=== PATIENT | male | born 1940 | race Caucasian/White ===

== ENCOUNTER 2023-01-20 20:02 | Inpatient (IN) | payer MEDICARE, OTHER ==
[2023-01-20 20:52] LABS: #Monocytes 1.1 thou/uL (0.11-0.59); #Neutrophils 12.3 thou/uL (1.40-6.50); %Basophils 0.2 % (0.0-1.0); %Eosinophils 0.2 % (0.0-10.0); %Lymphocytes 4.2 % (21.0-51.0); %Neutrophils 86.9 % (42.0-75.0); Hemoglobin 13.3 g/dL (14.0-18.0); Mean Corpuscular HGB CONC 33.8 g/dL (32.0-36.0); Mean Corpuscular Hemoglobin 33.2 pg (27.0-31.0); Mean Platelet Volume 10.3 fL (7.4-10.4); Platelet Count 189 10x3/uL (130-400); RBC Distribution Width 13.2 % (11.5-14.5); Red Blood Cell (RBC) Count 4.01 mill/uL (4.70-6.10); White Blood Cell (WBC) Count 14.1 10x3/uL (4.8-10.8)
[2023-01-20 21:14] LABS: ALT (SGPT) 15 U/L (8-55); AST (SGOT) 27 U/L (5-34); Albumin 3.8 g/dL (3.4-4.8); Alkaline Phosphatase 69 U/L (40-110); Anion Gap 12 mmol/L (10-20); BUN (Urea Nitrogen) 29 mg/dL (8.4-25.7); Bilirubin, Total 0.7 mg/dL (0.2-1.2); CK (CPK) 491 U/L (30-200); Calc. Creatinine Clearance 0 mL/min (70-130); Calcium 8.6 mg/dL (7.8-10.44); Carbon Dioxide 23 mmol/L (23-31); Chloride 108 mmol/L (98-107); Estimated GFR 56; Globulin 2.2 g/dL (2.4-3.5); Glucose 151 mg/dL (83-110); Potassium 4.3 mmol/L (3.5-5.1); Sodium 139 mmol/L (136-145)
[2023-01-20] MEDS ORDERED: Aspirin Chewable 81 MG TAB ONE (21:32)
[2023-01-20] MEDS ORDERED: Ondansetron ODT 4 MG TAB PO PRN (22:04)
[2023-01-20 22:35] LABS: Magnesium 1.8 mg/dL (1.6-2.6)
[2023-01-21] MEDS ORDERED: Magnesium 2 GM/50 ML(in water) 2 GM in Premix Bag 1 BAG IVPB SCH (00:15)
[2023-01-21 01:06] VITALS: BMI 26.7
[2023-01-21] MEDS ORDERED: Electrolyte Replacement Protocol 1 EACH FS PRN (01:07)
[2023-01-21] MEDS ORDERED: Sodium Chloride 0.9% 1,000 ML IV SCH (01:15)
[2023-01-21] MEDS: dilTIAZem 125 MG, Admixture Fee 1 EACH in Sodium Chloride 0.9% 100 ML IVPB SCH ×2 (03:44→20:47)
[2023-01-21 04:26] LABS: #Eosinphils 0.1 thou/uL (0.0-0.7); #Monocytes 1.1 thou/uL (0.11-0.59); #Neutrophils 5.8 thou/uL (1.40-6.50); %Basophils 0.4 % (0.0-1.0); %Eosinophils 1.2 % (0.0-10.0); %Lymphocytes 14.4 % (21.0-51.0); %Monocytes 13.1 % (0.0-10.0); %Neutrophils 70.7 % (42.0-75.0); Hemoglobin 12.7 g/dL (14.0-18.0); Mean Corpuscular Hemoglobin 33.2 pg (27.0-31.0); Mean Corpuscular Volume 97.4 fl (78.0-98.0); Mean Platelet Volume 10.2 fL (7.4-10.4); Platelet Count 186 10x3/uL (130-400); RBC Distribution Width 13.3 % (11.5-14.5); Red Blood Cell (RBC) Count 3.83 mill/uL (4.70-6.10); White Blood Cell (WBC) Count 8.2 10x3/uL (4.8-10.8)
[2023-01-21 04:34] LABS: Hemoglobin A1c 5.3 % (4.0-6.0)
[2023-01-21 04:54] LABS: ALT (SGPT) 12 U/L (8-55); AST (SGOT) 24 U/L (5-34); Albumin 3.5 g/dL (3.4-4.8); Alkaline Phosphatase 59 U/L (40-110); Anion Gap 12 mmol/L (10-20); BUN (Urea Nitrogen) 23 mg/dL (8.4-25.7); Bilirubin, Total 0.8 mg/dL (0.2-1.2); CK (CPK) 395 U/L (30-200); Calc. Creatinine Clearance 87 mL/min (70-130); Calcium 8.4 mg/dL (7.8-10.44); Carbon Dioxide 21 mmol/L (23-31); Chloride 110 mmol/L (98-107); Estimated GFR 88; Globulin 2.1 g/dL (2.4-3.5); Glucose 108 mg/dL (83-110); Potassium 3.9 mmol/L (3.5-5.1); Protein, Total 5.6 g/dL (5.8-8.1); Sodium 139 mmol/L (136-145)
[2023-01-21] MEDS: Apixaban 5 MG TAB PO SCH ×2 (08:33→20:45)
[2023-01-21] MEDS ORDERED: Metoprolol Tartrate 25 MG TAB PO SCH ×2 (09:00→18:00)
[2023-01-21 10:10] LABS: Troponin I 0.268 ng/mL (< 0.028)
[2023-01-21 13:02] LABS: Critical Call Chem Troponin I RESULT DECREASING; Troponin I 0.261 ng/mL (< 0.028)
[2023-01-21] MEDS ORDERED: Dronedarone HCl 400 MG TAB PO SCH (16:00)
[2023-01-21 16:56] VITALS: BP 109/71
[2023-01-22 05:07] LABS: Anion Gap 16 mmol/L (10-20); BUN (Urea Nitrogen) 14 mg/dL (8.4-25.7); CK (CPK) 252 U/L (30-200); Calc. Creatinine Clearance 93 mL/min (70-130); Calcium 8.6 mg/dL (7.8-10.44); Carbon Dioxide 16 mmol/L (23-31); Chloride 110 mmol/L (98-107); Estimated GFR 90; Glucose 93 mg/dL (83-110); Potassium 4.3 mmol/L (3.5-5.1); Sodium 138 mmol/L (136-145)
[2023-01-22] MEDS ORDERED: Dronedarone HCl 400 MG TAB PO SCH (08:00)
[2023-01-22] MEDS: Apixaban 5 MG TAB PO SCH ×2 (08:38→19:55)
[2023-01-22] MEDS: Metoprolol Tartrate 25 MG TAB PO SCH ×2 (08:38→19:55)
[2023-01-22] MEDS ORDERED: Sodium Chloride 0.9% 1,000 ML IV SCH (09:15)
[2023-01-22] MEDS ORDERED: Amiodarone 75 MG, Admixture Fee 1 EACH in Dextrose 5% in Water 100 ML IVPB SCH (12:15)
[2023-01-22 12:34] LABS: Bacteria/HPF None Seen HPF (None Seen); Bilirubin Negative (Negative); Blood, Urine Trace (Negative); Clarity Clear (Clear); Glucose, Urine (Dipstick) Normal (Negative); Ketone, Urine Trace mg/dL (Negative); Leukocyte Negative Leu/uL (Negative); Nitrite Negative (Negative); Protein, Urine (Dipstick) Negative (Neg-Trace); RBC/HPF 0-3 HPF (0-3); Specific Gravity, Urine 1.013 (1.002-1.036); Squamous Epithelial 0-3 HPF (0-3); Urobilinogen Normal mg/dL (Less than 2); WBC/HPF 0-3 HPF (0-3); pH, Urine 6.5 (5.0-9.0)
[2023-01-22] MEDS: Amiodarone 450 MG in Dextrose 5% in Water 250 ML IVPB SCH ×2 (13:22→20:46)
[2023-01-23 04:26] LABS: Anion Gap 14 mmol/L (10-20); BUN (Urea Nitrogen) 12 mg/dL (8.4-25.7); CK (CPK) 161 U/L (30-200); Calc. Creatinine Clearance 85 mL/min (70-130); Carbon Dioxide 22 mmol/L (23-31); Chloride 107 mmol/L (98-107); Estimated GFR 88; Glucose 109 mg/dL (83-110); Sodium 139 mmol/L (136-145)
[2023-01-23] MEDS ORDERED: Lidocaine 1% PF 5 ML VIAL ONE (08:24)
[2023-01-23] MEDS ORDERED: PROPOFOL 200 MG/20 ML VIAL ONE (08:24)
[2023-01-23] MEDS: Apixaban 5 MG TAB PO SCH ×2 (09:28→21:17)
[2023-01-23] MEDS: Amiodarone 200 MG TAB PO SCH ×2 (09:28→21:17)
[2023-01-23] MEDS: Metoprolol Tartrate 25 MG TAB PO SCH ×2 (09:29→21:17)
[2023-01-24 03:28] VITALS: TEMP 98.2
[2023-01-24] MEDS: Metoprolol Tartrate 25 MG TAB PO SCH (10:02)
[2023-01-24] MEDS: Amiodarone 200 MG TAB PO SCH (10:02)
[2023-01-24] MEDS: Apixaban 5 MG TAB PO SCH (10:03)
== END 2023-01-24 15:54 | disposition home or self-care (01) | DRG 282 ==
LOC: ERS 20:02 → SUATTDRO 20:02 → IMCU/EMU 22:08
PROVIDERS: ADMIT Internal Medicine; ATTEND Internal Medicine
PROC: 5A2204Z Restoration of Cardiac Rhythm, Single (ICD-10-PCS; principal; 2023-01-23)
DX: I48.0 Paroxysmal atrial fibrillation (principal); I21.A1 Myocardial infarction type 2; Z66 Do not resuscitate; I47.20 Ventricular tachycardia, unspecified; Z20.822 Contact with and (suspected) exposure to COVID-19; I10 Essential (primary) hypertension; Z96.652 Presence of left artificial knee joint; I08.3 Combined rheumatic disorders of mitral, aortic and tricuspid valves; G47.33 Obstructive sleep apnea (adult) (pediatric); E86.0 Dehydration; I95.89 Other hypotension; R42 Dizziness and giddiness; Z98.890 Other specified postprocedural states; Z79.899 Other long term (current) drug therapy; Z79.01 Long term (current) use of anticoagulants
CPT/HCPCS: 36415; 70551; 71045; 80048; 80053; 81001; 82550; 82553; 83036; 83735; 83880; 84100; 84443; 84484; 85025; 87635; 92960; 93005; 93010; 93306; 93880; 95816; 95819; 95957; 96365; 96366; J0282; J2704; J3475; J3490; J7050; J7070